=== PATIENT | male | born 1970 | race Caucasian/White ===

== ENCOUNTER 2019-07-17 10:48 | Outpatient (CLI) | payer OTHER, SELFPAY ==
--- NOTE | 2019-07-17 11:00 | DI.US_ITS ---
EXAM: US LOWER EXTREMITY VENOUS LT CLINICAL HISTORY: left calf and knee pain. + Sarah's. TECHNIQUE: Left lower extremity venous ultrasound performed using grayscale, color-flow, and spectra l Doppler analysis. COMPARISON: No exams were available for comparison FINDINGS: The left common femoral, femoral and popliteal veins demonstrate normal compressibility, augmentation , and color Doppler. The posterior tibial vein is patent. IMPRESSION: No evidence of DVT.
== END 2019-07-17 11:08 ==
PROVIDERS: PCP General Practice; Visit Provider Nurse Practitioner Family
DX: M79.662 Pain in left lower leg (principal); M25.562 Pain in left knee; R29.898 Other symptoms and signs involving the musculoskeletal system
CPT/HCPCS: 93971

== ENCOUNTER 2019-08-09 01:02 | Outpatient (CLI) | payer OTHER, SELFPAY ==
--- NOTE | 2019-08-09 08:45 | DI.MRI_ITS ---
EXAM: MR LUMBAR SPINE WO CLINICAL HISTORY: LUMBAR PAIN WITH RADICULOPATHY, LT LEG SYMPTOMS, LOW BACK PAIN TECHNIQUE: Multiplanar multisequence MRI was performed. COMPARISON: No exams were available for comparison FINDINGS: MRI examination of the lumbosacral spine was performed according to the usual protocol. There are pe ri discal vertebral signal changes at L3-4 and L4-5 consistent with disc degeneration and there is mu ltilevel loss of disc signal from L2-3 through L5-S1 also consistent with disc degeneration. Conus medullaris appears intact. Mild disc bulge noted at L1-2. No other significant findings at th is level. At L2-3 there is a moderate disc bulge. No disc herniation or other significant findings. Mild face t hypertrophy noted. At L3-4 there is moderate facet hypertrophy and moderate disc bulge without evident disc herniation. Mild central canal spinal stenosis and mild bilateral neural foraminal stenosis noted. At L4-5 there is moderate facet hypertrophy. There is a large central and left-sided disc herniation which projects below the level of the disc in the pole left lateral recess. There is bilateral neur al foraminal narrowing. Left L5 nerve root is probably impinged. Mild disc bulge noted at L5-S1. Moderate facet hypertrophy. No focal disc herniation. Mild bilater al neural foraminal stenosis. IMPRESSION: Multilevel findings as described above. Most significant findings are at L4-5 where there is a large central and left-sided disc herniation with presumed impingement on left L5 nerve root.
== END 2019-08-09 01:22 ==
PROVIDERS: PCP General Practice; Visit Provider Nurse Practitioner Family
DX: M54.17 Radiculopathy, lumbosacral region (principal); M51.16 Intervertebral disc disorders with radiculopathy, lumbar region; M51.17 Intervertebral disc disorders with radiculopathy, lumbosacral region; M54.5 Low back pain
CPT/HCPCS: 72148

== ENCOUNTER 2020-02-06 00:25 | Outpatient (CLI) | payer OTHER, SELFPAY ==
--- NOTE | 2020-02-06 07:30 | DI.MRI_ITS ---
EXAM: MR LUMBAR SPINE WO CLINICAL HISTORY: change in symptoms. radiation now on the right,LUMBAR PAIN, M54.5. TECHNIQUE: Multiplanar multisequence MRI was performed. COMPARISON: MR LUMBAR SPINE WO from 08/09/2019 FINDINGS: The T12-L1 level and could conus medullaris are unremarkable.. L1-2: Mild broad-based disc bulging and mild facet degenerative changes, stable. L2-3: Mild loss of disc height and broad-based disc osteophytes. Mild ligamentous hypertrophy and mi ld facet degenerative changes combine to cause slight central canal stenosis. L3-4: Moderate to severe loss of disc height and degenerative signal changes in the endplates. There are broad based disc osteophytes. There are moderate facet degenerative changes. There is severe b ilateral neural foraminal narrowing and mild central canal stenosis. L4-5: Broad-based disc osteophytes, eccentric toward the right side. There is moderate ligamentous h ypertrophy as well as facet degenerative changes combining to produce a moderate degree of central ca nal stenosis. There is severe right neural foraminal narrowing. The previously noted left sided dis c herniation is not seen on the current exam. L5-S1: Minimal endplate osteophytes. No significant central canal stenosis or neural foraminal narro wing. IMPRESSION: Multilevel degenerative disc changes and facet degenerative changes, greatest at L4-5 where there i s moderate central canal stenosis and severe right neural foraminal narrowing. Severe bilateral neur al foraminal narrowing is also seen at L3-4. The previously noted left L4-5 disc herniation is no longer visualized. DATA REPOSITORY:
== END 2020-02-06 00:45 ==
PROVIDERS: Visit Provider Nurse Practitioner Family
DX: M54.5 Low back pain (principal); M54.16 Radiculopathy, lumbar region; M51.17 Intervertebral disc disorders with radiculopathy, lumbosacral region; M47.26 Other spondylosis with radiculopathy, lumbar region
CPT/HCPCS: 72148